=== PATIENT | male | born 1945 | race Hispanic/Latino ===

== ENCOUNTER → 2025-04-07 | Outpatient (CLI) | payer OTHER ==
--- NOTE | 2025-04-07 17:25 | HMCIMG ---
EXAM: NM Bone Scan. CLINICAL HISTORY: PROSTATE CANCER 79 year old male OUTPATIENT PATIENT HX: PATIENT STATES TO HAVE LOWER BACK BONE SPURS, LOWER BACK PAIN. ORDER DX: PROSTATE CANCER Tc99m MDP TECHNIQUE: Frontal images of the whole body were obtained following the intravenous administration of radiopharmaceutical. RADIOPHARMACEUTICAL: 25 mCi of MDP COMPARISON: None provided. FINDINGS: SPINE: No abnormal increased or decreased uptake. RIBS: Uptake is seen within the right anterior ribs, which are aligned adjacent, and probably reflects trauma. LONG BONES: No abnormal uptake. PELVIS: No focal increased or decreased uptake. JOINTS: Uptake within the glenohumeral joints and knee joints bilaterally suggest underlying arthritis. SKULL/FACIAL BONES: No focal increased or decreased uptake. RENAL/BLADDER: Normal physiologic excretion within the left kidney. No uptake in the right kidney IMPRESSION: 1. Right sided anterior rib uptake suggests activity related to fracture. No evidence of metastatic disease. /[place]
== END | disposition home or self-care (01) ==
LOC: RAH 12:17
PROVIDERS: ATTEND Internal Medicine
DX: C61 Malignant neoplasm of prostate (principal)
CPT/HCPCS: 78306; A9503